=== PATIENT | female | born 1995 | race Two or more races ===

== ENCOUNTER 2019-04-09 20:18 | Emergency (ER) | payer OTHER ==
[~2019-04-09] VITALS: Ht 157.5 cm; Wt 57.0 kg
[2019-04-09 20:30] VITALS: BP 125/82
[2019-04-09] MEDS ORDERED: ORPHENADRINE CITRATE 60 MG/2 ML VIAL. IM ONE (21:45)
[2019-04-09] MEDS ORDERED: KETOROLAC 60 MG/2 ML VIAL. IM ONE (21:45)
[2019-04-09] MEDS ORDERED: CYCL10TA2 PO (22:51)
--- NOTE | 2019-04-09 22:51 | PHYS DOC ---
Past Medical History Past Medical History: No Pertinent History (CHIN GRANADOS APRN) Past Surgical History: No Surgical History (CHIN GRANADOS APRN) Alcohol Use: None (CHIN GRANADOS APRN) Attending Signature I have participated in the care of this patient and I have reviewed and agree with all pertinent clinical information above including history, exam, and recommendations. (GOOD DE JESUS MD) Adult General Chief Complaint Chief Complaint: OTHER COMPLAINTS HPI HPI Patient is a 23 year old female who presents to the emergency department with complaints of a posterior right sided headache. She states earlier this evening she became extremely angry and had an episode where both sides of her face felt numb and tingly and her head pain became quite severe. She denies any nausea, vomiting, weakness, incoordination, or difficulty speaking during this episode. Patient denies any health history. She states while she was angry she noticed that her vision also became blurred. She denies any syncope or recent head injury. She currently denies any vision changes. Patient states she has been under a lot of stress recently. She reports a history of anxiety and states that in the past when she was having anxiety episodes she had similar headaches in symptoms. She denies any suicidal or homicidal ideations. She currently rates her pain as 3 out of 10 on the pain scale, she denies any alleviating factors. All other ROS is neg unless otherwise noted in HPI. (CHIN GRANADOS APRN) Review of Systems Review of Systems See Above (CHIN GRANADOS APRN) Current Medications Current Medications Current Medications Medications (Trade) Dose Ordered Sig/Anusha Start Time Stop Time Status Last Admin Dose Admin Ketorolac Tromethamine (Toradol Im) 30 mg 1X ONCE 04/09/19 21:45 04/09/19 21:46 DC 04/09/19 22:14 30 MG Orphenadrine Citrate (Norflex) 60 mg 1X ONCE 04/09/19 21:45 04/09/19 21:46 DC 04/09/19 22:15 60 MG (GOOD DE JESUS MD) Allergies Allergies Allergies Coded Allergies Type Severity Reaction Last Updated Verified No Known Drug Allergies 04/09/19 No (GOOD DE JESUS MD) Physical Exam Physical Exam See Above Constitutional: Well developed, well nourished, no acute distress, non-toxic appearance. [] HENT: Normocephalic, atraumatic, bilateral external ears normal, oropharynx moist, no oral exudates, nose normal. [] Eyes: PERRLA, EOMI, conjunctiva normal, no discharge. [] Neck: Normal range of motion, no stridor. [] Cardiovascular:Heart rate regular rhythm, no murmur [] Lungs & Thorax: Bilateral breath sounds clear to auscultation, Respirations even and unlabored, no retractions, no respiratory distress [] Skin: Warm, dry, no erythema, no rash. [] Back: No tenderness Extremities: No cyanosis, ROM intact, no edema. [] Neurologic: Alert and oriented X 3, CN II- CN VII intact, normal motor function, normal sensory function, no focal deficits noted. [] Psychologic: Affect normal, judgement normal, mood normal. [] (CHIN GRANADOS APRN) Current Patient Data Vital Signs Vital Signs Date Time Temp Pulse Resp B/P (MAP) Pulse Ox O2 Delivery O2 Flow Rate FiO2 04/09/19 20:30 97.7 89 14 125/82 (96) 98 Room Air 97.7 (GOOD DE JESUS MD) Lab Values Laboratory Tests Test 04/09/19 21:56 POC Urine HCG, Qualitative Hcg negative (Negative) (GOOD DE JESUS MD) EKG EKG [] (CHIN GRANADOS APRN) Radiology/Procedures Radiology/Procedures [] (CHIN GRANADOS APRN) Course & Med Decision Making Course & Med Decision Making Pertinent Labs and Imaging studies reviewed. (See chart for details) Patient is a 23-year-old female who presented to the emergency department with complaints of a stress headache and anxiety attack. Her neurological exam revealed no abnormal findings. Patient was given 60 mg of IM Norflex and 30 mg of IM Toradol. She reported relief of her headache after these medications. Encouraged patient to follow up with her primary care doctor about recent increased stress and anxiety levels. Prescription written for Flexeril to take as needed for headaches. Return to the ER symptoms worsen. Patient verbalized an understanding of home care, medications, follow-up, and return to ED instructions and was in agreement with the plan of care. [] (CHIN GRANADOS APRN) Dragon Disclaimer Dragclemencia Disclaimer This electronic medical record was generated, in whole or in part, using a voice recognition dictation system. (CHIN GRANADOS APRN) Departure Departure Impression: Primary Impression: Stress headache Additional Impressions: Anxiety Tension-type headache, not intractable Disposition: 01 HOME, SELF-CARE Condition: STABLE Referrals: NO PCP (PCP) Patient Instructions: Anxiety and Panic Attacks, What-ow-[id number], Tension Headache, [id number] Additional Instructions: Fill the prescription and use it as directed. Follow-up with your primary care doctor for further evaluation of anxiety. Return to the ER symptoms worsen. Scripts Cyclobenzaprine Hcl (CYCLOBENZAPRINE HCL) 10 Mg Tablet 1 TAB PO TID PRN for PAIN, #30 TAB 0 Refills Prov: CHIN GRANADOS APRN 04/09/19 Problem Qualifiers Additional Impressions: Tension-type headache, not intractable Headache chronicity pattern: acute headache Qualified Codes: G44.209 - Tension-type headache, unspecified, not intractable CHIN GRANADOS APRN Apr 09, 2019 22:51 GOOD DE JESUS MD Apr 10, 2019 03:58
== END 2019-04-09 23:00 | disposition home or self-care (01) ==
LOC: ER 20:18
DX: G44.209 Tension-type headache, unspecified, not intractable (principal); F41.9 Anxiety disorder, unspecified
CPT/HCPCS: 81025; 96372; 99284; J1885; J2360

== ENCOUNTER 2019-12-10 00:01 | Emergency (ER) | payer OTHER ==
[~2019-12-10] VITALS: Ht 157.5 cm; Wt 56.8 kg
[~2019-12-10 00:01] MED LIST: CYCL10TA2 PO
[2019-12-10 00:27] LABS: BILIRUBIN,URINE NEGATIVE (NEG); CLARITY,URINE CLEAR; COLOR,URINE YELLOW; NITRITE,URINE NEGATIVE (NEG); PH,URINE 6.5 (<5.0-8.0); PROTEIN,URINE NEGATIVE (NEG-TRACE); UROBILINOGEN,URINE 0.2 mg/dL (0.2 mg/dL)
--- NOTE | 2019-12-10 00:28 | PHYS DOC ---
Past Medical History Past Medical History: No Pertinent History Past Surgical History: No Surgical History Smoking Status: Never Smoker Alcohol Use: None General Adult EDM: Chief Complaint: ABDOMINAL PAIN HPI: HPI: Patient is a 24 year old who is currently on medications for yeast infection presents with a chief complaint of suprapubic discomfort. Patient states that she has had pain for 4 days. It is constant. It does not radiate. She denies any associated nausea vomiting or diarrhea. She denies any vaginal discharge or vaginal bleeding. Patient finished her menstrual cycle on the . Patient has been seen outpatient 2 times the last 48 hours. Patient was initially seen at urgent care had a urine performed and was told it was negative for infection and she was placed on Diflucan. Patient then followed up today had similar [place] where she had a pelvic exam and a Pap smear those results are pending. Patient was scheduled for an outpatient ultrasound which is scheduled for December 26. Patient states pain continues in the medications that she has been taking [id number] for her pain have not helped. On exam patient's abdomen is soft without rebound or guarding. She has no pain to palpation in her right lower quadrant. Patient's pain is not reproducible. Review of Systems: Review of Systems: Constitutional: Denies fever or chills. [] Eyes: Denies change in visual acuity. [] HENT: Denies nasal congestion or sore throat. [] Respiratory: Denies cough or shortness of breath. [] Cardiovascular: Denies chest pain or edema. [] GI: Denies abdominal pain, nausea, vomiting, bloody stools or diarrhea. [] : Denies dysuria. [] Musculoskeletal: Denies back pain or joint pain. [] Integument: Denies rash. [] Neurologic: Denies headache, focal weakness or sensory changes. [] Endocrine: Denies polyuria or polydipsia. [] Lymphatic: Denies swollen glands. [] Psychiatric: Denies depression or anxiety. [] Heart Score: Risk Factors: Risk Factors: DM, Current or recent (<one month) smoker, HTN, HLP, family history of CAD, obesity. Risk Scores: Score 0 - 3: 2.5% MACE over next 6 weeks - Discharge Home Score 4 - 6: 20.3% MACE over next 6 weeks - Admit for Clinical Observation Score 7 - 10: 72.7% MACE over next 6 weeks - Early Invasive Strategies Current Medications: Current Medications Medications (Trade) Dose Ordered Sig/Anusha Start Time Stop Time Status Last Admin Dose Admin Ketorolac Tromethamine (Toradol 30mg Vial) 30 mg 1X ONCE 12/10/19 00:30 12/10/19 00:31 UNV Allergies: Allergies: Allergies Coded Allergies Type Severity Reaction Last Updated Verified No Known Drug Allergies 04/09/19 No Physical Exam: PE: Constitutional: Well developed, well nourished, no acute distress, non-toxic appearance. [] HENT: Normocephalic, atraumatic, bilateral external ears normal, oropharynx moist, no oral exudates, nose normal. [] Eyes: PERRLA, EOMI, conjunctiva normal, no discharge. [] Neck: Normal range of motion, no tenderness, supple, no stridor. [] Cardiovascular:Heart rate regular rhythm, no murmur [] Lungs & Thorax: Bilateral breath sounds clear to auscultation [] Abdomen: Bowel sounds normal, soft, no tenderness, no masses, no pulsatile masses. [no pain to palpation-- specifically no right lower quadrant pain.] Skin: Warm, dry, no erythema, no rash. [] Back: No tenderness, no CVA tenderness. [] Extremities: No tenderness, no cyanosis, no clubbing, ROM intact, no edema. [] Neurologic: Alert and oriented X 3, normal motor function, normal sensory funct ion, no focal deficits noted. [] Psychologic: Affect normal, judgement normal, mood normal. [] Current Patient Data: Vital Signs: Vital Signs Date Time Temp Pulse Resp B/P (MAP) Pulse Ox O2 Delivery O2 Flow Rate FiO2 12/10/19 00:18 98.0 69 18 124/60 (81) 98 Room Air 98.0 EKG: EKG: [] Radiology/Procedures: Radiology/Procedures: [] Course & Med Decision Making: Course & Med Decision Making Pertinent Labs and Imaging studies reviewed. (See chart for details) [] Patient was evaluated for chief complaint. Work-up consisted of laboratory analysis and radiologic imaging. Results reviewed and discussed with patient and significant other. Pain was treated with Toradol. Patient advised to take Tylenol and ibuprofen for her pain. Will prescribe patient Ultram. Patient also advised to continue taking her Diflucan as prescribed. Dragon Disclaimer: Dragon Disclaimer: This electronic medical record was generated, in whole or in part, using a voice recognition dictation system. Departure Departure Impression: Primary Impression: Pelvic pain Disposition: 01 HOME, SELF-CARE Condition: STABLE Referrals: NO PCP (PCP) Patient Instructions: Pelvic Pain, Female Scripts Tramadol Hcl (ULTRAM) 50 Mg Tablet 1 TAB PO PRN Q6HRS PRN for pain MDD 4 Tablet(s) for 7 Days, #28 TAB 0 Refills Prov: CASSIE MATOS I DO 12/10/19 Justicifation of Admission Dx: Justifications for Admission: Justification of Admission Dx: N/A CASSIE MATOS I DO Dec 10, 2019 00:28
[2019-12-10 00:32] LABS: SQUAMOUS EPITHELIAL CELL,UR FEW /LPF
[2019-12-10 00:33] LABS: BACTERIA,URINE 0 /HPF (0-FEW); RBC,URINE RARE /HPF (0-2); WBC,URINE RARE /HPF (0-4)
[2019-12-10 00:41] LABS: BASO % 1 % (0-3); EOS # 0.2 x10^3/uL (0.0-0.7); EOS % 3 % (0-3); HEMATOCRIT 37.7 % (36.0-47.0); HEMOGLOBIN 13.1 g/dL (12.0-15.5); LYMPH # 1.6 x10^3/uL (1.0-4.8); LYMPH % 35 % (24-48); MEAN CORPUSCULAR HEMOGLOBIN 31 pg (25-35); MEAN CORPUSCULAR HGB CONC 35 g/dL (31-37); MEAN CORPUSCULAR VOLUME 88 fL (79-100); MONO # 0.7 x10^3/uL (0.0-1.1); MONO % 16 % (0-9); NEUT # 2.1 x10^3/uL (1.8-7.7); NEUT % 45 % (31-73); PLATELET COUNT 249 x10^3/uL (140-400); RED BLOOD COUNT 4.27 x10^6/uL (3.50-5.40); RED CELL DISTRIBUTION WIDTH 13.1 % (11.5-14.5); WHITE BLOOD COUNT 4.6 x10^3/uL (4.0-11.0)
[2019-12-10 00:48] LABS: CALCIUM 8.6 mg/dL (8.5-10.1); CREATININE 0.7 mg/dL (0.6-1.0); GFR 102.8; POTASSIUM 3.7 mmol/L (3.5-5.1)
[2019-12-10 00:54] LABS: ALBUMIN 3.7 g/dL (3.4-5.0); ALBUMIN/GLOBULIN RATIO 1.1 (1.0-1.7); TOTAL BILIRUBIN 0.5 mg/dL (0.2-1.0)
[2019-12-10] MEDS ORDERED: KETOROLAC 30 MG/ML VIAL. IM ONE (01:00)
[2019-12-10] MEDS ORDERED: TRAM-48 PO (01:33)
--- NOTE | 2019-12-10 01:43 | RAD ---
Pelvic ultrasound, transabdominal and transvaginal: Reason for examination: Pelvic pain. Transabdominally, the uterus measures 8.5 x 4.1 x 5.5 cm in greatest dimensions without a focal mass in the endometrium is not thickened at 8.7 mm. No abnormality seen at the bladder. Left ovary measures 4 x 2 cm in greatest dimension with good vascular flow. Right ovary measures 3 x 2.1 x 2.3 cm shows normal vascular flow. No free fluid is seen. Transvaginally, there appears to be a small nabothian cyst in the cervix. The uterus measures 8.3 x 3.9 x 5.4 cm. No uterine mass is seen. Endometrium is not thickened at 5.4 mm. Left ovary measures 3.6 x 1.6 x 1.6 cm in greatest dimension and shows good vascular flow. Right ovary measures 2.7 x 2.7 x 2.3 cm in greatest dimension and shows normal vascular flow. No adnexal masses are seen. No free fluid is present. IMPRESSION: Small nabothian cyst in the cervix. No other focal abnormality seen in the pelvis. Electronically signed by: Corine El MD (12/10/2019 1:40 AM) PRADIP
[2019-12-10 02:00] VITALS: BP 120/68
== END 2019-12-10 02:00 | disposition home or self-care (01) ==
LOC: ER 00:01
DX: R10.2 Pelvic and perineal pain (principal)
CPT/HCPCS: 36415; 76830; 76856; 80053; 81001; 81025; 85025; 96372; 99284; J1885

== ENCOUNTER 2019-12-18 03:00 | Emergency (ER) | payer OTHER ==
[~2019-12-18] VITALS: Ht 157.5 cm; Wt 56.0 kg
[~2019-12-18 03:00] MED LIST changes: +TRAM-48 PO
[2019-12-18 03:03] VITALS: BP 121/86
[2019-12-18] MEDS ORDERED: AMOX1TAB61 PO (03:28)
--- NOTE | 2019-12-18 03:28 | PHYS DOC ---
Past Medical History Past Medical History: No Pertinent History Past Surgical History: No Surgical History Smoking Status: Never Smoker Alcohol Use: None General Adult EDM: Chief Complaint: FINGER INJURY HPI: HPI: Patient is a previously healthy female who presents to the Emergency Room complaining of finger pain. She bite off a side nail a couple of days ago and has been having worsening pain since that time. She developed finger swelling this morning that has gotten worse. Denies difficulty moving finger. Review of Systems: Review of Systems: Negative other than noted Heart Score: Risk Factors: Risk Factors: DM, Current or recent (<one month) smoker, HTN, HLP, family history of CAD, obesity. Risk Scores: Score 0 - 3: 2.5% MACE over next 6 weeks - Discharge Home Score 4 - 6: 20.3% MACE over next 6 weeks - Admit for Clinical Observation Score 7 - 10: 72.7% MACE over next 6 weeks - Early Invasive Strategies Allergies: Allergies: Allergies Coded Allergies Type Severity Reaction Last Updated Verified No Known Drug Allergies 04/09/19 No Physical Exam: PE: General: Awake, alert, NAD. Well Nourished, well hydrated. Cooperative HEENT: Atraumatic, EOMI, PERRL, airway patent, moist oral mucosa Neck: Supple, trachea midline MSK: No obvious deformities Skin: Warm, dry, paronychia to right fourth finger Neuro: A&O x3, speech NL, sensory and motor grossly intact, no focal deficits Psych: Normal affect, normal mood, not suicidal or homicidal Current Patient Data: Vital Signs: Vital Signs Date Time Temp Pulse Resp B/P (MAP) Pulse Ox O2 Delivery O2 Flow Rate FiO2 12/18/19 03:03 97.9 92 18 121/86 (98) 97 Room Air 97.9 EKG: EKG: [] Radiology/Procedures: Radiology/Procedures: [] Course & Med Decision Making: Course & Med Decision Making Pertinent Labs and Imaging studies reviewed. (See chart for details) Patient presents with small paronychia. Incision made with small amount of drainage. Discussed soaking finger. Patient to be placed on augmentin Dragon Disclaimer: Dragon Disclaimer: This electronic medical record was generated, in whole or in part, using a voice recognition dictation system. Departure Departure Impression: Primary Impression: Paronychia of finger Disposition: HOME, SELF-CARE Condition: STABLE Referrals: NO PCP (PCP) Patient Instructions: Paronychia Scripts Amoxicillin/Potassium Clav (AUGMENTIN 875-125 TABLET) 1 Each Tablet 1 TAB PO Q12HR for 5 Days, #10 TAB Prov: YAN AVENDANO MD 12/18/19 YAN AVENDANO MD Dec 18, 2019 03:28
== END 2019-12-18 03:36 | disposition home or self-care (01) ==
LOC: ER 03:00
DX: L03.011 Cellulitis of right finger (principal)
CPT/HCPCS: 10060; 99283; 99284

== ENCOUNTER 2020-01-19 21:41 | Emergency (ER) | payer OTHER ==
[~2020-01-19] VITALS: Ht 157.5 cm; Wt 56.8 kg
[~2020-01-19 21:41] MED LIST changes: +AMOX1TAB61 PO
--- NOTE | 2020-01-19 21:52 | PHYS DOC ---
Past Medical History Past Medical History: No Pertinent History Past Surgical History: No Surgical History Smoking Status: Never Smoker Alcohol Use: None General Adult EDM: Chief Complaint: CHEST PAIN HPI: HPI: Patient is a 24 year old female who arrives with a chief complaint of chest pain. Patient's had 4 days of constant substernal chest pain that radiates to the back that is described with pressure. Patient has a mild intermittent shortness of breath with this. Patient denies any nausea vomiting. Patient shows symptoms not worse with deep breaths or exertion. Patient denies any recent illnesses such as fever, cough or known exposure to COVID-19. Review of Systems: Review of Systems: Constitutional: Denies fever or chills. [] Eyes: Denies change in visual acuity. [] HENT: Denies nasal congestion or sore throat. [] Respiratory: Denies cough but has had some mild shortness of breath Cardiovascular: Complains of chest pain but no edema GI: Denies abdominal pain, nausea, vomiting, bloody stools or diarrhea. [] : Denies dysuria. [] Musculoskeletal: Denies back pain or joint pain. [] Integument: Denies rash. [] Neurologic: Denies headache, focal weakness or sensory changes. [] Endocrine: Denies polyuria or polydipsia. [] Lymphatic: Denies swollen glands. [] Psychiatric: Denies depression or anxiety. [] Heart Score: HEART Score for Chest Pain: HEART Score for Chest Pain Response (Comments) Value History Slighlty/Non-Suspicious 0 ECG Normal 0 Age < 45 0 Risk Factors No Risk Factors 0 Troponin < Normal Limit 0 Total 0 Risk Factors: Risk Factors: DM, Current or recent (<one month) smoker, HTN, HLP, family history of CAD, obesity. Risk Scores: Score 0 - 3: 2.5% MACE over next 6 weeks - Discharge Home Score 4 - 6: 20.3% MACE over next 6 weeks - Admit for Clinical Observation Score 7 - 10: 72.7% MACE over next 6 weeks - Early Invasive Strategies Allergies: Allergies: Allergies Coded Allergies Type Severity Reaction Last Updated Verified No Known Drug Allergies 04/09/19 No Physical Exam: PE: Constitutional: Well developed, well nourished, no acute distress, non-toxic appearance. [] HENT: Normocephalic, atraumatic, bilateral external ears normal, no trismus, nose normal. [] Eyes: PERRLA, EOMI, conjunctiva normal, no discharge. [] Neck: Normal range of motion, no tenderness, supple, no stridor. [] Cardiovascular:Heart rate regular rhythm, peripheral pulses are intact, cap refill is brisk Lungs & Thorax: Bilateral breath sounds clear to auscultation [] Abdomen, soft, no tenderness, no masses, no pulsatile masses. [] Skin: Warm, dry, no erythema, no rash. [] Back: No tenderness, no CVA tenderness. [] Extremities: No tenderness, no cyanosis, no clubbing, ROM intact, no edema. [] Neurologic: Alert and oriented X 3, normal motor function, normal sensory function, no focal deficits noted. [] Psychologic: Affect normal, judgement normal, mood normal. [] Current Patient Data: Labs: Laboratory Tests Test 01/19/20 21:50 White Blood Count 5.4 x10^3/uL Red Blood Count 4.41 x10^6/uL Hemoglobin 13.4 g/dL Hematocrit 39.6 % Mean Corpuscular Volume 90 fL Mean Corpuscular Hemoglobin 31 pg Mean Corpuscular Hemoglobin Concent 34 g/dL Red Cell Distribution Width 13.2 % Platelet Count 286 x10^3/uL Neutrophils (%) (Auto) 48 % Lymphocytes (%) (Auto) 39 % Monocytes (%) (Auto) 9 % Eosinophils (%) (Auto) 4 % Basophils (%) (Auto) 1 % Neutrophils # (Auto) 2.6 x10^3/uL Lymphocytes # (Auto) 2.1 x10^3/uL Monocytes # (Auto) 0.5 x10^3/uL Eosinophils # (Auto) 0.2 x10^3/uL Basophils # (Auto) 0.0 x10^3/uL D-Dimer (Destiny) < 0.27 ug/mlFEU Maternal Serum HCG Beta Subunit 1 mIU/mL Sodium Level 140 mmol/L Potassium Level 3.3 mmol/L Chloride Level 106 mmol/L Carbon Dioxide Level 29 mmol/L Anion Gap 5 Blood Urea Nitrogen 18 mg/dL Creatinine 0.7 mg/dL Estimated GFR (Cockcroft-Gault) 102.8 BUN/Creatinine Ratio 26 Glucose Level 84 mg/dL Calcium Level 9.2 mg/dL Total Bilirubin 0.7 mg/dL Aspartate Amino Transf (AST/SGOT) 11 U/L Alanine Aminotransferase (ALT/SGPT) 20 U/L Alkaline Phosphatase 64 U/L Troponin I Quantitative < 0.017 ng/mL Total Protein 7.6 g/dL Albumin 4.1 g/dL Albumin/Globulin Ratio 1.2 Lipase 234 U/L Current Medications Medications (Trade) Dose Ordered Sig/Anusha Route PRN Reason Start Time Stop Time Status Last Admin Dose Admin Potassium Chloride (Klor-Con) 40 meq 1X ONCE PO 01/19/20 23:00 01/19/20 23:01 DC 01/19/20 22:38 Vital Signs: Vital Signs Date Time Temp Pulse Resp B/P (MAP) Pulse Ox O2 Delivery O2 Flow Rate FiO2 01/19/20 21:43 98.3 64 20 129/73 (91) 100 Room Air 98.3 EKG: EKG: [] EKG interpreted by me normal sinus rhythm with a rate of 76 left axis deviation normal intervals normal ST segments Radiology/Procedures: Radiology/Procedures: [][facility] [address] [place] [address] IMAGING REPORT Signed PATIENT: MANISHA PÉREZACCOUNT: [id number] : 1995 LOCATION: ER AGE: 24 SEX: F EXAM STATUS: REG ER ORD. PHYSICIAN: RADHA HOWELL MD REASON: CP PROCEDURE: PORTABLE CHEST 1V Exam: Chest one view INDICATION: Chest pain TECHNIQUE: Frontal view of the chest Comparisons: None FINDINGS: The cardiomediastinal silhouette and pulmonary vessels are within normal limits. The lung and pleural spaces are clear. IMPRESSION: No acute cardiopulmonary process. Electronically signed by: Jose Lopez MD (01/19/2020 11:26 PM) [id number] DICTATED and SIGNED BY: JOSE LOPEZ MD DATE: 01/19/20 2326 Course & Med Decision Making: Course & Med Decision Making Pertinent Labs and Imaging studies reviewed. (See chart for details) [] Patient reassessed at 11:20 PM. Patient is resting comfortably in no distress. Patient's work-up is negative. 24-year-old female comes in with 4 days of constant chest pain. EKG chest x-ray and D-dimer and troponin are all negative. Patient has a heart score of 0. Doubt acute coronary syndrome. Kelton Disclaimer: Kelton Disclaimer: This electronic medical record was generated, in whole or in part, using a voice recognition dictation system. Departure Departure Impression: Primary Impression: Chest pain Disposition: 01 DC HOME SELF CARE/HOMELESS Condition: LEFT WITHOUT BEING SEEN Referrals: NO PCP (PCP) [facility] [address] [place] [address] [facility] [address] [place] [address] [facility] [address] Patient Instructions: Chest Pain (Nonspecific) Additional Instructions: EMERGENCY DEPARTMENT GENERAL DISCHARGE INSTRUCTIONS THANK YOU for coming to [facility] Emergency Department (ED) today and trusting us with your care. We trust that you had a positive experience in our Emergency Department. If you wish to speak to the department Management you can contact the plating department helper at . YOUR FOLLOW UP INSTRUCTIONS ARE FOLLOWS: Do you have a private doctor? If you do not have a private doctor, please ask for a resource list of physicians or clinics that may be able to assist you with follow up care. The Emergency Physician has interpreted your x-rays. The X-ray specialist will also review them. If there is a change in the findings you will be notified in 48 hours when at all possible. A lab test or lab culture may have been done, your results will be reviewed and you will be notified if you need a change in treatment. ADDITIONAL INSTRUCTIONS AND INFORMATION Your care today has been supervised by a physician who is specially trained in emergency care. Many problems require more than one evaluation for a complete diagnosis and treatment. We recommend that you schedule your follow up appointment as recommended to ensure complete treatment of your illness or injury. If you are unable to obtain follow up care and continue to have a problem, or if your condition worsens we recommend that you return to the ED. We are not able to safely determine your condition over the phone nor are we able to give sound medical advice over the phone. For these safety reasons, if you call for medical advice we will ask you to come to the ED for further evaluation If you have any questions regarding these discharge instructions please call the ED at . SAFETY INFORMATION In the interest of safety, wellness, and injury prevention; we encourage you to wear your seatbelt, if you smoke; quit smoking, and we encourage your family to use protective helmet for bicycling and other sporting events that present an increased risk for head injury. IF YOUR SYMPTOMS WORSEN OR NEW SYMPTOMS DEVELOP, OR YOU HAVE CONCERNS ABOUT YOUR CONDITION; OR IF YOUR CONDITION WORSENS WHILE YOU ARE WAITING FOR YOUR FOLLOW UP APPOINTMENT; EITHER CONTACT YOUR PRIMARY CARE DOCTOR, THE PHYSICIAN WHOSE NAME AND NUMBER YOU WERE GIVEN, OR RETURN TO THE ED IMMEDIATELY. Scripts Ibuprofen (Ibu) 600 Mg Tablet 1 TAB PO Q8HRS for 7 Days, #21 TAB 0 Refills Prov: RADHA HOWELL MD 01/19/20 RADHA HOWELL MD Jan 19, 2020 21:52
[2020-01-19 22:01] LABS: BASO % 1 % (0-3); EOS # 0.2 x10^3/uL (0.0-0.7); EOS % 4 % (0-3); HEMATOCRIT 39.6 % (36.0-47.0); HEMOGLOBIN 13.4 g/dL (12.0-15.5); LYMPH # 2.1 x10^3/uL (1.0-4.8); LYMPH % 39 % (24-48); MEAN CORPUSCULAR HEMOGLOBIN 31 pg (25-35); MEAN CORPUSCULAR HGB CONC 34 g/dL (31-37); MEAN CORPUSCULAR VOLUME 90 fL (79-100); MONO # 0.5 x10^3/uL (0.0-1.1); MONO % 9 % (0-9); NEUT # 2.6 x10^3/uL (1.8-7.7); NEUT % 48 % (31-73); PLATELET COUNT 286 x10^3/uL (140-400); RED BLOOD COUNT 4.41 x10^6/uL (3.50-5.40); RED CELL DISTRIBUTION WIDTH 13.2 % (11.5-14.5); WHITE BLOOD COUNT 5.4 x10^3/uL (4.0-11.0)
[2020-01-19 22:10] LABS: CALCIUM 9.2 mg/dL (8.5-10.1); CREATININE 0.7 mg/dL (0.6-1.0); GFR 102.8; POTASSIUM 3.3 mmol/L (3.5-5.1)
[2020-01-19 22:18] LABS: ALBUMIN 4.1 g/dL (3.4-5.0); ALBUMIN/GLOBULIN RATIO 1.2 (1.0-1.7); TOTAL BILIRUBIN 0.7 mg/dL (0.2-1.0); TOTAL PROTEIN 7.6 g/dL (6.4-8.2)
[2020-01-19] MEDS ORDERED: POTASSIUM CHLORIDE 20 MEQ TABLET.ER. PO ONE (23:00)
[2020-01-19] MEDS ORDERED: IBUP-571 PO (23:24)
--- NOTE | 2020-01-19 23:29 | RAD ---
Exam: Chest one view INDICATION: Chest pain TECHNIQUE: Frontal view of the chest Comparisons: None FINDINGS: The cardiomediastinal silhouette and pulmonary vessels are within normal limits. The lung and pleural spaces are clear. IMPRESSION: No acute cardiopulmonary process. Electronically signed by: Jose Aldrich MD (01/19/2020 11:26 PM) [id number]
[2020-01-19 23:30] VITALS: BP 112/68
--- NOTE | 2020-01-20 05:43 | EKG ---
[facility] [address] [place] [address] Test Date: 2020-01-19 Test Time: 21:48:36 Pat Name: MANISHA PÉREZ Department: Room: Gender: F Node J[employer] Developer: : 1995 Requested By: RADHA HOWELL Order Number: [id number] Reading MD: Measurements Intervals [place] Rate: 76 P: 48 TN: 132 QRS: -10 QRSD: 88 T: 27 QT: 382 QTc: 429 Interpretive Statements SINUS RHYTHM LEFTWARD AXIS OTHERWISE NORMAL ECG RI6.02 No previous ECG available for comparison
== END 2020-01-19 23:46 | disposition home or self-care (01) ==
LOC: ER 21:41
DX: R07.2 Precordial pain (principal); R06.02 Shortness of breath
CPT/HCPCS: 36415; 71045; 80053; 83690; 84484; 84702; 85025; 85379; 93005; 99285